=== PATIENT | female | born 2000 | race American Indian/Alaskan Native ===

== ENCOUNTER 2020-10-09 18:54 | Emergency (ER) | payer SELFPAY ==
--- NOTE | 2020-10-09 19:48 | Emergency Department Report ---
ED Abdominal Pain HPI - General Stated Complaint: RT SIDED UNDER RIB PAIN Time Seen by Provider: 10/09/20 19:30 Source: patient Mode of arrival: Ambulatory Limitations: No Limitations - History of Present Illness Initial Comments: Patient is a 20-year-old female presents emergency room complaints of right upper quadrant abdominal pain that began couple days ago. She has associated nausea and decreased appetite. She states her pain is worse with eating. She denies any fever, vomiting, diarrhea, urinary symptoms, hematochezia, melena, hematemesis. She states that she is still having bowel movements. 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 She denies any past surgical history. No allergies to medications. Last menstrual cycle 09/21/2020. - Related Data Previous Rx's Medication Instructions Recorded Last Taken Type Famotidine [Pepcid] 40 mg PO QHS #30 tablet 10/09/20 Unknown Rx Sucralfate [Carafate] 1 gm PO ACHS 7 Days #21 tablet 10/09/20 Unknown Rx Allergies Allergy/AdvReac Type Severity Reaction Status Date / Time No Known Allergies Allergy Unverified 10/09/20 19:52 ED Review of Systems ROS: Stated complaint: RT SIDED UNDER RIB PAIN Other details as noted in HPI Comment: All other systems reviewed and negative ED Past Medical Hx - Medications Home Medications: Home Medications Medication Instructions Recorded Confirmed Last Taken Type Famotidine [Pepcid] 40 mg PO QHS #30 tablet 10/09/20 Unknown Rx Sucralfate [Carafate] 1 gm PO ACHS 7 Days #21 tablet 10/09/20 Unknown Rx ED Physical Exam - General Limitations: No Limitations General appearance: alert, in no apparent distress - Head Head exam: Present: atraumatic, normocephalic - Eye Eye exam: Present: normal appearance - ENT ENT exam: Present: mucous membranes moist - Respiratory Respiratory exam: Present: normal lung sounds bilaterally. Absent: respiratory distress, wheezes, rales, rhonchi, stridor, chest wall tenderness, accessory muscle use, decreased breath sounds, prolonged expiratory - Cardiovascular Cardiovascular Exam: Present: regular rate, normal rhythm, normal heart sounds. Absent: systolic murmur, diastolic murmur, rubs, gallop - GI/Abdominal GI/Abdominal exam: Present: soft, tenderness (RUQ), normal bowel sounds. Absent: distended, guarding, rebound, rigid - Neurological Exam Neurological exam: Present: alert, oriented X3 - Psychiatric Psychiatric exam: Present: normal affect, normal mood - Skin Skin exam: Present: warm, dry, intact ED Course Vital Signs 10/09/20 19:44 Temperature 98.4 F Pulse Rate 78 Respiratory 18 Rate Blood Pressure 142/86 O2 Sat by Pulse 99 Oximetry ED Medical Decision Making - Lab Data Result diagrams: 10/09/20 19:47 10/09/20 19:47 Lab Results 10/09/20 10/09/20 10/09/20 Range/Units 19:44 19:47 19:47 WBC 6.0 (4.5-11.0) K/mm3 RBC 4.28 (3.65-5.03) M/mm3 Hgb 14.0 (10.1-14.3) gm/dl Hct 41.6 (30.3-42.9) % MCV 97 (79-97) fl MCH 33 H (28-32) pg MCHC 34 (30-34) % RDW 12.9 L (13.2-15.2) % Plt Count 168 (140-440) K/mm3 Lymph % (Auto) 49.0 H (13.4-35.0) % [place] % (Auto) 6.9 (0.0-7.3) % Eos % (Auto) 1.0 (0.0-4.3) % Baso % (Auto) 0.5 (0.0-1.8) % Lymph # (Auto) 2.9 (1.2-5.4) K/mm3 [place] # (Auto) 0.4 (0.0-0.8) K/mm3 Eos # (Auto) 0.1 (0.0-0.4) K/mm3 Baso # (Auto) 0.0 (0.0-0.1) K/mm3 Seg Neutrophils % 42.6 (40.0-70.0) % Seg Neutrophils # 2.5 (1.8-7.7) K/mm3 Sodium 139 (137-145) mmol/L Potassium 3.9 (3.6-5.0) mmol/L Chloride 101.1 (98-107) mmol/L Carbon Dioxide 29 (22-30) mmol/L Anion Gap 13 mmol/L BUN 12 (7-17) mg/dL Creatinine 1.0 (0.6-1.2) mg/dL Estimated GFR > 60 ml/min BUN/Creatinine Ratio 12 % Glucose 78 (65-100) mg/dL Calcium 9.4 (8.4-10.2) mg/dL Total Bilirubin 0.30 (0.1-1.2) mg/dL AST 17 (5-40) units/L ALT 12 (7-56) units/L Alkaline Phosphatase 69 (35-129) units/L Total Protein 7.4 (6.3-8.2) g/dL Albumin 4.5 (3.9-5) g/dL Albumin/Globulin Ratio 1.6 % Lipase 27 (13-60) units/L HCG, Qual (Negative) Urine Color Yellow (Yellow) Urine Turbidity Clear (Clear) Urine pH 6.0 (5.0-7.0) Ur Specific [place] 1.021 (1.003-1.030) Urine Protein <15 mg/dl (Negative) mg/dL Urine Glucose (UA) Neg (Negative) mg/dL Urine Ketones Neg (Negative) mg/dL Urine Blood Neg (Negative) Urine Nitrite Neg (Negative) Urine Bilirubin Neg (Negative) Urine Urobilinogen < 2.0 (<2.0) mg/dL Ur Leukocyte Esterase Neg (Negative) Urine WBC (Auto) < 1.0 (0.0-6.0) /HPF Urine RBC (Auto) 2.0 (0.0-6.0) /HPF U Epithel Cells (Auto) 2.0 (0-13.0) /HPF Urine Mucus Few /HPF 10/09/20 Range/Units 19:47 WBC (4.5-11.0) K/mm3 RBC (3.65-5.03) M/mm3 Hgb (10.1-14.3) gm/dl Hct (30.3-42.9) % MCV (79-97) fl MCH (28-32) pg MCHC (30-34) % RDW (13.2-15.2) % Plt Count (140-440) K/mm3 Lymph % (Auto) (13.4-35.0) % [place] % (Auto) (0.0-7.3) % Eos % (Auto) (0.0-4.3) % Baso % (Auto) (0.0-1.8) % Lymph # (Auto) (1.2-5.4) K/mm3 [place] # (Auto) (0.0-0.8) K/mm3 Eos # (Auto) (0.0-0.4) K/mm3 Baso # (Auto) (0.0-0.1) K/mm3 Seg Neutrophils % (40.0-70.0) % Seg Neutrophils # (1.8-7.7) K/mm3 Sodium (137-145) mmol/L Potassium (3.6-5.0) mmol/L Chloride (98-107) mmol/L Carbon Dioxide (22-30) mmol/L Anion Gap mmol/L BUN (7-17) mg/dL Creatinine (0.6-1.2) mg/dL Estimated GFR ml/min BUN/Creatinine Ratio % Glucose (65-100) mg/dL Calcium (8.4-10.2) mg/dL Total Bilirubin (0.1-1.2) mg/dL AST (5-40) units/L ALT (7-56) units/L Alkaline Phosphatase (35-129) units/L Total Protein (6.3-8.2) g/dL Albumin (3.9-5) g/dL Albumin/Globulin Ratio % Lipase (13-60) units/L HCG, Qual Negative (Negative) Urine Color (Yellow) Urine Turbidity (Clear) Urine pH (5.0-7.0) Ur Specific [place] (1.003-1.030) Urine Protein (Negative) mg/dL Urine Glucose (UA) (Negative) mg/dL Urine Ketones (Negative) mg/dL Urine Blood (Negative) Urine Nitrite (Negative) Urine Bilirubin (Negative) Urine Urobilinogen (<2.0) mg/dL Ur Leukocyte Esterase (Negative) Urine WBC (Auto) (0.0-6.0) /HPF Urine RBC (Auto) (0.0-6.0) /HPF U Epithel Cells (Auto) (0-13.0) /HPF Urine Mucus /HPF - Radiology Data Radiology results: report reviewed Ordering Physician: VAN QUEEN Date of Service: 10/09/20 Procedure(s): US abdomen limited Accession Number(s): [id number] cc: VAN QUEEN ULTRASOUND ABDOMEN, COMPLETE INDICATION: RUQ abd pain COMPARISON: None available LIMITATIONS: Patient was not n.p.o. for the procedure FINDINGS: Pancreas: Visualized portions show no significant abnormalities. Abdominal Aorta: No significant abnormalities. IVC: Normal Liver: Mild fatty infiltration is seen. No obvious focal lesions are noted. Liver is not enlarged. Gallbladder: Gallbladder is mildly contracted. Considering this, I do not see definite wall thickening. No calculi are obvious though detail is low. Bile ducts: Normal. Common Bile Duct measures 1 mm. Right Kidney: Normal Left Kidney: Low detail but no acute abnormalities are seen Spleen: Low detail but no obvious abnormalities are seen Free fluid: None Additional Findings: None IMPRESSION: No acute abnormalities are seen. Signer Name: Nick Antunez MD Signed: 10/09/2020 8:58 PM Workstation Name: [id number] Transcribed By: KACI Dictated By: Nick Antunez MD Electronically Authenticated By: Nick Antunez MD Signed Date/Time: 10/09/202057 DD/ 53 TD/TT: - Medical Decision Making Patient is a 20-year-old female presents emergency room complaints of right upper quadrant abdominal pain that began couple days ago. She has associated nausea and decreased appetite. She states her pain is worse with eating. She denies any fever, vomiting, diarrhea, urinary symptoms, hematochezia, melena, hematemesis. She states that she is still having bowel movements. 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 She denies any past surgical history. No allergies to medications. Last menstrual cycle 09/21/2020. Vitals are stable. On exam patient has right upper quadrant tenderness to palpation. Labs are normal. hCG is negative. UA is within normal limits. Abdominal ultrasound:IMPRESSION: No acute abnormalities are seen. Discussed all results with patient answered questions. patient has no fever, no leukocytosis, no vomiting, she is able to tolerate p.o. intake, do not suspect acute cholecystitis at this time. Given that her pain is worse with eating, there is a possibility of ulcers versus GERD. Given prescription for Pepcid and Caraf ate. Patient be referred to GI. Discussed very strict return precautions in detail with patient. Advised patient Please take medication as prescribed. Increase your water intake. Please follow the diet for acid reflux/ulcers. Follow-up with your primary care doctor. Follow-up with the GI doctor. Return to emergency room for any worsening symptoms. Critical care attestation.: If time is entered above; I have spent that time in minutes in the direct care of this critically ill patient, excluding procedure time. ED Disposition Clinical Impression: Abdominal pain Qualifiers: Abdominal location: right upper quadrant Qualified Code(s): R10.11 - Right upper quadrant pain Disposition: TO HOME OR SELFCARE Is pt being admited?: No Does the pt Need Aspirin: No Condition: Stable Instructions: Peptic Ulcer, [id number], Food Choices for Gastroesophageal Reflux Disease, Adult, Abdominal Pain, Adult, [id number] Additional Instructions: Please take medication as prescribed. Increase your water intake. Please f ollow the diet for acid reflux/ulcers. Follow-up with your primary care doctor. Follow-up with the GI doctor. Return to emergency room for any worsening symptoms. Prescriptions: Famotidine [Pepcid] 40 mg PO QHS #30 tablet Sucralfate [Carafate] 1 gm PO ACHS 7 Days #21 tablet Referrals: [facility] [Provider Group] - 2-3 Days [facility] [Provider Group] - 2-3 Days OBDULIO SALEEM MD [Staff Physician] - 2-3 Days Time of Disposition: 21:06 Print Language: ARABIC
[2020-10-09 19:52] VITALS: BP 142/86
[2020-10-09 20:04] LABS: Bilirubin,Urine NEG (Negative); Blood,Urine NEG (Negative); Color,Urine Yellow (Yellow); Mucus,Urine FEW /HPF; Protein,Urine <15 mg/dL mg/dL (Negative); Urobilinogen,Urine < 2.0 mg/dL (<2.0); WBC,Urine < 1.0 /HPF (0.0-6.0)
[2020-10-09 20:15] LABS: Basophils % (Auto) 0.5 % (0.0-1.8); Eosinophils # (Auto) 0.1 K/mm3 (0.0-0.4); Hematocrit 41.6 % (30.3-42.9); Lymphocytes # (Auto) 2.9 K/mm3 (1.2-5.4); Mean Corpuscular HGB Conc 34 % (30-34); Mean Corpuscular Volume 97 fl (79-97); Monocytes # (Auto) 0.4 K/mm3 (0.0-0.8); Monocytes % (Auto) 6.9 % (0.0-7.3); Platelet Count 168 K/mm3 (140-440); Red Blood Count 4.28 M/mm3 (3.65-5.03); Red Cell Distribution Width 12.9 % (13.2-15.2)
[2020-10-09 20:41] LABS: Alanine Aminotransferase 12 units/L (7-56); Albumin 4.5 g/dL (3.9-5); BUN/Creatinine Ratio 12; Blood Urea Nitrogen 12 mg/dL (7-17); Calcium 9.4 mg/dL (8.4-10.2); Hemolysis Index 4
--- NOTE | 2020-10-09 21:02 | Ultrasound Report ---
ULTRASOUND ABDOMEN, COMPLETE INDICATION: RUQ abd pain COMPARISON: None available LIMITATIONS: Patient was not n.p.o. for the procedure FINDINGS: Pancreas: Visualized portions show no significant abnormalities. Abdominal Aorta: No significant abnormalities. IVC: Normal Liver: Mild fatty infiltration is seen. No obvious focal lesions are noted. Liver is not enlarged. Gallbladder: Gallbladder is mildly contracted. Considering this, I do not see definite wall thickenin g. No calculi are obvious though detail is low. Bile ducts: Normal. Common Bile Duct measures 1 mm. Right Kidney: Normal Left Kidney: Low detail but no acute abnormalities are seen Spleen: Low detail but no obvious abnormalities are seen Free fluid: None Additional Findings: None IMPRESSION: No acute abnormalities are seen. Signer Name: Nick Antunez MD Signed: 10/09/2020 8:58 PM Workstation Name: [id number]
== END 2020-10-09 21:15 | disposition home or self-care (01) ==
LOC: ED 18:54
DX: R10.11 Right upper quadrant pain (principal); Z79.899 Other long term (current) drug therapy
CPT/HCPCS: 36415; 76705; 80053; 81001; 83690; 84703; 85025